=== PATIENT | female | born 1965 | race Caucasian/White ===

== ENCOUNTER → 2016-10-29 | Outpatient (CLI) | payer BC ==
--- NOTE | 2016-10-30 13:17 | MAMMOGRAPHY REPORT ---
BILATERAL DIGITAL SCREENING MAMMOGRAM TOMOSYNTHESIS WITH CAD: 10/29/2016 CLINICAL HISTORY: Routine screening. Patient has no complaints. TECHNIQUE: Breast tomosynthesis in addition to standard 2D mammography was performed. Current study was also evaluated with a Computer Aided Detection (CAD) system. COMPARISON: Comparison is made to exams dated: 10/23/2015 mammogram, 10/20/2014 mammogram, 10/19/2013 m ammogram, 10/07/2012 mammogram, 10/07/2011 mammogram, and 10/03/2010 mammogram - [facility]. BREAST COMPOSITION: There are scattered areas of fibroglandular density in both breasts. FINDINGS: The parenchymal pattern is unchanged. No developing mass, architectural distortion or clu ster of suspicious microcalcifications is seen in either breast. IMPRESSION: ACR BI-RADS CATEGORY 2: BENIGN There is no mammographic evidence of malignancy. A 1 year screening mammogram is recommended. The p atient will receive written notification of the results. Approximately 10% of breast cancers are not detected with mammography. A negative mammographic repor t should not delay biopsy if a clinically suggestive mass is present. Salud Washington M.D. ay/:10/29/2016 15:46:22 [employer] [facility] Supervisor: Iraida VASQUEZ(Nadine)(M), [facility] letter sent: Normal 1/2 BI-RADS Code: ACR BI-RADS Category 2: Benign
== END | disposition home or self-care (01) ==
LOC: C.MAMM 15:00
PROVIDERS: ATTEND Physician Assistant
DX: Z12.31 Encounter for screening mammogram for malignant neoplasm of breast (principal)

== ENCOUNTER → 2016-11-06 | Outpatient (CLI) | payer BC ==
[~2016-11-06] MED LIST: GADAVIST IV PRN
--- NOTE | 2016-11-06 20:38 | DIAGNOSTIC IMAGING REPORT ---
MRI OF LUMBAR SPINE COMBO CLINICAL HISTORY: Follow up study. History of sacral tumor resection. COMPARISON STUDY: Previous MRI examinations of lumbar spine, most recently dated 10/30/2015. TECHNIQUE: MRI of the lumbar spine is performed utilizing various T1 and T2 weighted sequences in the axial and sagittal planes. Contrast enhanced sequences are acquired following the IV administration of 5 cc of Gadavist. FINDINGS: SPINAL CORD: Vertebral body height and alignment are maintained throughout the lumbosacral spine. Normal marrow signal intensity is preserved of the visualized bony structures. There is straightening of the lumbar lordosis. There is evidence of laminectomy at L5 and S1. The remaining spinous processes and transverse processes are intact. There is no evidence of spondylolysis. No destructive bony lesions are seen. A tiny hemangioma is noted in the body of L3. INTERVERTEBRAL DISCS: There is degenerative disc desiccation and loss of height at all levels, greatest at L3-L4 and L5-S1. SPINAL CORD: The visualized spinal cord is normal in morphology and signal intensity. The conus medullaris terminates at the level of L1. The nerve roots of the cauda equina are normal in appearance. There is no evidence of recurrent or residual enhancing soft tissue lesion within the central canal. L1-L2: Unremarkable. L2-L3: Unremarkable. L3-L4: Unremarkable. L4-L5: Unremarkable. L5-S1: There is a small posterior disc bulge with annular Lockhart. The central canal is clear. There is minimal bilateral subarticular stenosis. The neural foramina are widely patent. Minimal enhancing scar tissue is seen along the posterior aspect of the thecal sac at this level which is similar to previous. SOFT TISSUES: Postoperative changes are identified posteriorly at L5-S1. The retroperitoneal structures are normal as visualized. Note that these were incompletely evaluated. IMPRESSION: 1. Again seen are postoperative changes from laminectomy at L5-S1 and resection of the previously identified tumor at the S1 level. There is no evidence of recurrent or residual enhancing soft tissue lesion and there has been no significant change from 10/30/2015. 2. Mild degenerative disc disease as above, greatest at L5-S1. 3. There is no disc herniation, central canal stenosis, or neural foraminal narrowing seen throughout the lumbosacral spine. Electronically signed by: Elías Champagne M.D. 11/06/2016 8:37 PM Dictated Date/Time: 11/06/2016 8:32 PM
== END | disposition home or self-care (01) ==
LOC: C.MRI 19:41
PROVIDERS: ATTEND Registered Nurse
DX: D49.7 Neoplasm of unspecified behavior of endocrine glands and other parts of nervous system (principal); Z98.890 Other specified postprocedural states

== ENCOUNTER → 2017-10-30 | Outpatient (CLI) | payer BC ==
--- NOTE | 2017-10-31 07:48 | MAMMOGRAPHY REPORT ---
BILATERAL DIGITAL SCREENING MAMMOGRAM TOMOSYNTHESIS WITH CAD: 10/30/2017 CLINICAL HISTORY: Routine screening. TECHNIQUE: Breast tomosynthesis in addition to standard 2D mammography was performed. Current study was also evaluated with a Computer Aided Detection (CAD) system. COMPARISON: Comparison is made to exams dated: 10/29/2016 mammogram, 10/23/2015 mammogram, 10/20/2014 jovan mogram, and 10/19/2013 mammogram - [facility]. BREAST COMPOSITION: There are scattered areas of fibroglandular density in both breasts. FINDINGS: No suspicious masses, calcifications, or areas of architectural distortion are noted in ei ther breast. There has been no significant interval change compared to prior exams. IMPRESSION: ACR BI-RADS CATEGORY 1: NEGATIVE There is no mammographic evidence of malignancy. A 1 year screening mammogram is recommended. The pa tient will receive written notification of the results. Approximately 10% of breast cancers are not detected with mammography. A negative mammographic report should not delay biopsy if a clinically suggestive mass is present. Velma Ivey M.D. ah/:10/30/2017 16:21:09 Medical Assistant: Ariel VASQUEZ(R)(M), [facility] letter sent: Normal 1/2 BI-RADS Code: ACR BI-RADS Category 1: Negative
== END | disposition home or self-care (01) ==
LOC: C.MAMM 15:04
PROVIDERS: ATTEND Physician Assistant
DX: Z12.31 Encounter for screening mammogram for malignant neoplasm of breast (principal)